=== PATIENT | male | born 1985 | race Caucasian/White ===

== ENCOUNTER 2023-12-13 03:50 | Emergency (ER) | payer SELFPAY ==
[2023-12-13] MEDS ORDERED: Mupirocin 2% Ointment 22 GM Tube ONE (04:15)
== END 2023-12-13 04:23 | disposition home or self-care (01) ==
LOC: NAV ERS 03:50
DX: S40.862A Insect bite (nonvenomous) of left upper arm, initial encounter (principal); F17.290 Nicotine dependence, other tobacco product, uncomplicated; W57.XXXA Bitten or stung by nonvenomous insect and other nonvenomous arthropods, initial encounter
CPT/HCPCS: 99282